=== PATIENT | male | born 1995 | race African-American/Black ===

== ENCOUNTER 2021-08-03 14:21 | Emergency (ER) | payer OTHER ==
[~2021-08-03] VITALS: Ht 180.3 cm; Wt 88.2 kg
[2021-08-03 14:42] VITALS: TEMP 99
[2021-08-03 15:31] LABS: STREP SCREEN NEGATIVE
[2021-08-03 16:13] VITALS: BP 130/81; PULSE 74
== END 2021-08-03 16:14 | disposition home or self-care (01) ==
LOC: COL.ER 14:21
PROVIDERS: Nurse Practitioner
DX: J02.9 Acute pharyngitis, unspecified (principal); F17.210 Nicotine dependence, cigarettes, uncomplicated; Z20.822 Contact with and (suspected) exposure to COVID-19

== ENCOUNTER 2022-03-18 08:25 | Observation (INO) | payer OTHER ==
[2022-03-18] VITALS (9 sets, daily range): BP systolic 111–143; BP diastolic 53–85; PULSE 71–96; TEMP 98–99.2
[~2022-03-18] VITALS: Ht 182.9 cm; Wt 95.5 kg
[2022-03-18 08:49] LABS: BASO # 0.1 K/mm3 (0.0-0.2); BASO % 0.3 % (0.0-2.0); EOS % 0.3 % (0.0-4.0); GRAN # 13.5 K/mm3 (1.4-6.5); GRAN % 85.5 % (42.2-75.2); HEMATOCRIT 43.1 % (42.0-52.0); HEMOGLOBIN 14.2 g/dl (13.5-18.0); LYMPH # 1.5 K/mm3 (1.2-3.4); LYMPH % 9.7 % (20.0-51.0); MEAN CELL VOLUME 87 fl (80.0-100.0); MEAN CORPUSCULAR HEMOGLOBIN 29 pg (27-31); MEAN CORPUSCULAR HGB CONC 33 g/dl (33.0-37.0); MONO # 0.6 K/mm3 (0.1-0.6); MONO % 3.9 % (1.7-9.3); PLATELET COUNT 339 K/mm3 (130-400); RED BLOOD COUNT 4.94 M/mm3 (4.20-5.60); REDCELL DISTRIBUTION WIDTH-CV 14.3 % (11.5-14.5)
[2022-03-18 08:53] LABS: COLLECTION METHOD CLEAN CATCH
[2022-03-18 08:59] LABS: PH 5 (5-8); SQUAMOUS EPITHELIAL 0-2 /hpf (0-10); URINE APPEARANCE Clear (CLEAR/HAZY); URINE BACTERIA None Seen /hpf (NONE SEEN); URINE BILIRUBIN Negative (NEGATIVE); URINE BLOOD Negative (NEGATIVE); URINE COLOR Yellow (YELLOW); URINE GLUCOSE Negative (NEGATIVE); URINE KETONE Negative (NEGATIVE); URINE LEUKOCYTE ESTERASE Negative (NEGATIVE); URINE NITRATE Negative (NEGATIVE); URINE PROTEIN(semi-quant) Negative (NEGATIVE); URINE RBC 0-2 /hpf (0-2); URINE UROBILINOGEN Negative (NEGATIVE)
[2022-03-18 09:05] LABS: ALBUMIN 4.2 gm/dL (3.5-5.0); BILIRUBIN,TOTAL 0.5 mg/dL (0.2-1.2); CALCIUM 9.1 mg/dL (8.4-10.2); CREATININE, serum 1.35 mg/dL (0.72-1.25); POTASSIUM 4.3 mmol/L (3.5-4.5); TOTAL PROTEIN 7.4 gm/dL (6.2-8.1)
--- NOTE | 2022-03-18 13:12 | NUR ---
Patient brought by the ER, and now [facility] from [facility] here to take patient to surgery. Patient has Lr to gravity. Denies needing to void. He is slightly sleepy. Will await his retrun from [facility].
--- NOTE | 2022-03-18 16:01 | NUR ---
Patient has returned post op. He is sleepy. Arousable to name. Lap site x 3 bandaids intact. Scds ble. Vss on 2 O2. Will monitor
--- NOTE | 2022-03-18 17:19 | NUR ---
Patient awake, ready to eat. Menu and phone provided to ordered. Vitals stable on room air. Iv to Int. Will monitor.
--- NOTE | 2022-03-18 18:59 | NUR ---
rounded. Discharge orders obtained. Patient has been up to the bathroom & voided & tolerated food. Vss on room air. Plans for discharge tonight. Report to [facility] to resume cares
--- NOTE | 2022-03-18 19:39 | NUR ---
PATIENT INCISION INTACT ABLE TO VOID, PASSING GAS PATIENT TO DISCHARGE THIS EVENING AWAITING TRANSPORTATION NO N/V NOTED AT THIS TIME. EDUCATED AND TRANSITION POST ABD SURGERY AND ALSO DISCUSSED CONSTIPATION AND PAIN MANAGEMENT AT HOME. DISCHARGE INSTRUCTIONS PROVIDED TO PATIENT. D/C IV SITE TO R HAND DRESSING IN PLACE. WILL CONTINUE TO MONITOR.
--- NOTE | 2022-03-19 11:35 | NUR ---
Foot Roentgenologist received transferred telephone contact from patient, stating he is concerned that his surgical site from his hospital admission and surgery yesterday continues to bleed. [facility] who [facility] to evaluate his need for emergency medical care. This Foot Roentgenologist reviewed with patient his discharge instructions from his visit yesterday, noting a recommendation to contact Dr. Vieyra with questions/concerns and a telephone number identified. Patient states awareness and takes down the phone number, informs he does have his discharge paperwork. He plans to call. He has placed a larger bandage on his surgical site to help stop the bleeding. He verbalizes understanding this clinician can give him no medical advice as is out of the scope of this clinician's practice. He is encouraged to seek out his recommended care steps per discharge paperwork and [facility] recommendation pher his own contact should he be fearful he is in a medical emergency. He expresses gratitude and thanks this Foot Roentgenologist.
[2022-03-19] MEDS ORDERED: NORCO 325 MG-51 TAB PO (11:41)
== END 2022-03-18 19:53 | disposition home or self-care (01) ==
LOC: COL.ER 08:25 → SURG 09:52
PROVIDERS: Emergency Medicine; ADMIT Surgery
DX: K35.80 Unspecified acute appendicitis (principal); F17.290 Nicotine dependence, other tobacco product, uncomplicated
CPT/HCPCS: G0378; J0690; J1100; J1885; J2250; J2270; J2405; J2543; J2704; J2765; J3010; J7120; Q9967